=== PATIENT | female | born 1935 | race African-American/Black ===

== ENCOUNTER 2018-10-06 07:55 | Day surgery (SDC) | payer OTHER ==
[2018-10-05 14:50] VITALS: BMI 39.1
[2018-10-06] MEDS ORDERED: ceFAZolin SODIUM 1 GM VIAL ONE (11:04)
[2018-10-06] MEDS ORDERED: KETOROLAC TROMETHAMINE 30 MG/1 ML VIAL ONE (11:04)
[2018-10-06] MEDS ORDERED: DEXAMETHASONE SOD PHOSPHATE 4 MG/1 ML VIAL ONE (11:04)
[2018-10-06] MEDS ORDERED: LIDOCAINE HCL/PF 2% SDV 5ML VIAL ONE ×2 (11:04→11:05)
[2018-10-06] MEDS ORDERED: SODIUM CHLORIDE 0.9% P/F 10 ML VIAL IJ ONE (11:04)
[2018-10-06] MEDS ORDERED: PROPOFOL 20 ML ONE ×2 (11:06→13:40)
[2018-10-06] MEDS ORDERED: SUCCINYLCHOLINE CHLORIDE 200 MG/10 ML VIAL ONE (11:06)
[2018-10-06] MEDS ORDERED: DESFLURANE GAS 240 ML BOTTLE IH ONE (11:15)
[2018-10-06] MEDS ORDERED: ISOSULFAN BLUE 10 MG/ML VIAL SQ ONE (11:22)
[2018-10-06] MEDS ORDERED: ceFAZolin SODIUM 1 GM VIAL IVPB ONE (12:10)
[2018-10-06] MEDS ORDERED: ONDANSETRON 4 MG/2 ML VIAL IVPB PRN (14:18)
[2018-10-06] MEDS ORDERED: ACETAMINOPHEN 500 MG TABLET (FP) PO PRN (14:19)
[2018-10-06] MEDS ORDERED: LACTATED RINGERS SOLUTION 1,000 ML/1,000 ML INFUS.BAG IV SCH (14:30)
[2018-10-06] MEDS ORDERED: ACETAMINOPHEN 325 MG TABLET (FP) PO PRN (14:32)
[2018-10-06] MEDS ORDERED: oxyCODONE HCL 5 MG TABLET PO PRN (14:32)
--- NOTE | 2018-10-06 14:44 | OP ---
Operative Note - Note: Operative Date: 10/06/18 Pre-Operative Diagnosis: Left Breast Cancer Operation: Left breast lumpectomy with wire localied excision, Left sentinile node biopsy Post-Operative Diagnosis: Same as Pre-op Surgeon: Sapphire Boone Electrical Appliance Servicer: Mere Sumner Anesthesiologist/STAMP CLERK: Samir Ty Anesthesia: General Estimated Blood Loss (mls): 20 Fluid Volume Replaced (mls): 400 Operative Report Dictated: Yes
--- NOTE | 2018-10-06 14:45 | SURG ---
Surgery Design Quality Engineer Note Design Quality Engineer: Mere Sumner PA-C Date of Service: 10/06/18 Diagnosis: left breast Cancer Procedure: Left breast lumpectomy with wire localized excision, Left sentinile node biopsy I was present for the entirety of the operative procedure. For further detail, please refer to operative report. Visit type - Case Type Case Type: Scheduled - Emergency Emergency Visit: No - New patient This patient is new to me today: Yes Date on this admission: 10/06/18
[2018-10-06] MEDS ORDERED: ACETAMINOPHEN INJECTION 100 ML IVPB ONE (15:13)
[2018-10-06] MEDS ORDERED: ACETAMINOPHEN 1000 MG/100 ML VIAL (NON FORMULARY) IVPB ONE (15:15)
--- NOTE | 2018-10-07 08:39 | OP ---
DATE OF OPERATION: 10/06/2018 PREOPERATIVE DIAGNOSIS: Left breast cancer, left breast microcalcifications. POSTOPERATIVE DIAGNOSIS: Left breast cancer, left breast microcalcifications. PROCEDURE: Left breast wide localized lumpectomy and sentinel node biopsy, left breast wide localized excisional biopsy. SURGEON: Sapphire Logan MD PIPELINE SUPERINTENDENT: Mere. ANESTHESIA: General. ESTIMATED BLOOD LOSS: Minimal. COMPLICATIONS: None. This was a sterile procedure. INDICATION FOR PROCEDURE: Patient presented with a palpable mass in the upper lower back. A needle biopsy showed this to be invasive carcinoma. She had a mammogram that noted the mass with the calcifications as well as a second area of calculations close to the nipple and the upper left breast. My recommendation was an excision of the calculations for definitive diagnosis that were close to the nipple as well as a lumpectomy with sentinel node biopsy. The procedure was discussed with all of the questions answered. PROCEDURE IN DETAIL: The patient was brought to [facility] in [place] and taken to breast imaging where a wire was used to localize the mass in the left 12 o'clock location 10 cm from the nipple as well as the calcifications closer to the nipple in the upper left breast. She was then taken to nuclear medicine where I injected technetium laced with sulfur colloid as an intradermal injection in the left 12 o'clock periareolar location. She was then brought up to the operating room. After induction of general anesthesia and IV antibiotics, 5 mL of Isosulfan blue dye was injected into the left subareolar plexus, and the breast was massaged for 5 minutes. The left breast and axilla were then prepped and draped in the usual sterile fashion. A 4-cm incision was made in the left axilla, carried down to the clavicpectoral fascia to identify 3 sentinel lymph nodes, 1 that was blue and hot, the other was hot but not blue, and a 3rd one that was significantly very deep in also hot not blue. There were other lymph nodes that I initially thought were hot turned out not to be ex vivo, therefore, were sent as left axillary nonsentinel nodes. There was no other blue dye radioactivity or pathologic feeling lymph nodes in the left axilla; therefore, once hemostasis was assured, first a left breast lumpectomy was performed. An incision was made just inferior to the insertion of the wire in the left 12 o'clock location 10 cm from the nipple, and the wire was used as a guide to get down to the area. This was excised en bloc and tagged with a long stitch lateral, short stitch superior. Sent for specimen radiograph. While waiting for that, the left breast excisional biopsy was performed. An incision was made in the periareolar 12 o'clock left breast, and a wire was used to as a guide to get down to the area. This was excised en bloc and sent as a left breast excisional biopsy. The specimen radiograph showed the mass and the calcifications with a rim of normal fatty tissue around the lumpectomy as well as the calcifications being in the center of the specimen on the excisional biopsy. Once hemostasis was assured, both incisions were closed in a routine fashion with interrupted 2-0 Vicryl. Skin approximated with 3-0 Vicryl and running 4-0 Prolene. The axillary incision was also closed with interrupted 0 Vicryl and running 4-0 Prolene. A sterile dressing with Tegaderm and 4x4 was applied. She tolerated the procedure well, was extubated on the operating room table, and taken to recovery in good condition. SAPPHIRE LOGAN M.D. [id number]
[2018-10-07 12:11] VITALS: BP 131/72; PULSE 94; TEMP 98.5
--- NOTE | 2018-10-11 13:25 | PATH ---
Surgical Pathology Report Patient Name: JARVIS JIMENEZ [facility]. Rec. #: [id number] /Age/Gender: 1935 (Age: 82) / F Account: [id number] Location: AMBULATORY SURG Taken: 10/06/2018 Received: 10/06/2018 Reported: 10/11/2018 Physicians: Sapphire Boone M.D. Specimen(s) Received A: LEFT BREAST LUMPECTOMY SHORT STITCH SUPERIOR LONG STITCH LATERAL B: LEFT BREAST EXCISIONAL BIOPSY C: LEFT AXILLARY SENTINEL LYMPH NODE #1 D: LEFT AXILLARY SENTINEL LYMPH NODE #2 E: LEFT AXILLARY SENTINEL LYMPH NODE #3 F: LEFT AXILLARY NON-SENTINEL LYMPH NODE Clinical History Left breast cancer Final Diagnosis A. LEFT BREAST, LUMPECTOMY: INVASIVE DUCTAL CARCINOMA, POORLY DIFFERENTIATED (TUBULE SCORE 3/3, NUCLEAR GRADE: 2/3, MITOTIC SCORE: 3/3, TOTAL SCORE 8/9, JANAE GRADE 3), MEASURING 2.6 CM IN GREATEST DIMENSION, GROSSLY AND MICROSCOPICALLY. DUCTAL CARCINOMA IN SITU (DCIS) PRESENT, INTERMEDIATE TO HIGH NUCLEAR GRADE, CRIBRIFORM AND MICROPAPILLARY PATTERNS, WITH ASSOCIATED NECROSIS AND MICROCALCIFICATIONS. SURGICAL MARGINS ARE UNINVOLVED BY CARCINOMA. INVASIVE CARCINOMA IS AT 2MM FROM THE CLOSEST (LATERAL) MARGIN. DCIS IS AT 10 MM FROM THE CLOSEST (ANTERIOR) MARGIN. NO LYMPHOVASCULAR INVASION IS IDENTIFIED. 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 PATHOLOGIC STAGE (PTNM): PT2, PN0 SEE ALSO INVASIVE CARCINOMA CASE SUMMARY BELOW. B. LEFT BREAST, EXCISIONAL BIOPSY: DUCTAL CARCINOMA IN SITU (DCIS) PRESENT, HIGH NUCLEAR GRADE, CRIBRIFORM PATTERN, WITH ASSOCIATED NECROSIS AND MICROCALCIFICATIONS. SURGICAL MARGINS IS UNINVOLVED BY DCIS. DCIS IS AT 9MM FROM THE CLOSEST MARGIN. THE REST OF THE BREAST TISSUE SHOWS INTRADUCTAL PAPILLOMA, FIBROADENOMA, AND PROLIFERATIVE FIBROCYSTIC CHANGES. C. LEFT AXILLARY SENTINEL LYMPH NODE #1, BLUE AND HOT, EXCISION: TWO LYMPH NODES, NEGATIVE FOR METASTATIC CARCINOMA (0/2). D. LEFT AXILLARY SENTINEL LYMPH NODE #2, HOT NOT BLUE, EXCISION: THREE LYMPH NODES, NEGATIVE FOR METASTATIC CARCINOMA (0/3). E. LEFT AXILLARY SENTINEL LYMPH NODE #3, HOT NOT BLUE, EXCISION: ONE LYMPH NODE, NEGATIVE FOR METASTATIC CARCINOMA (0/1). F. LEFT AXILLARY NON-SENTINEL LYMPH NODE, EXCISION: FOUR LYMPH NODES, NEGATIVE FOR METASTATIC CARCINOMA (0/4). Comments Breast Invasive Carcinoma: Surgical Pathology Case Summary (Based on AJCC TNM 8 th edition) Procedure _x_ Excision (less than total mastectomy) Specimen Laterality _x_ Left Tumor Size Greatest dimension of largest invasive focus >1 mm (specify exact measurement) (millimeters): 26 mm Histologic Type _x_ Invasive carcinoma of no special type (ductal, not otherwise specified) Histologic Grade (Janae Histologic Score) Glandular (Acinar)/Tubular Differentiation _x_ Score 3 (<10% of tumor area forming glandular/tubular structures) Nuclear Pleomorphism _x_ Score 2 Mitotic Rate _x_ Score 3 Overall Grade _x_ Grade 3 (scores of 8 or 9) Tumor Focality _x_ Single focus of invasive carcinoma Ductal Carcinoma In Situ (DCIS) __x_ DCIS is present in specimen __x_ Positive for EIC Margins Invasive Carcinoma Margins _x_ Uninvolved by invasive carcinoma Distance from closest margin (millimeters): 2 mm Closest margin: lateral DCIS Margins _x_ Uninvolved by DCIS Distance from closest margin (millimeters): 10 mm Closest margin: anterior Regional Lymph Nodes Number of Lymph Nodes with Macrometastases (>2 mm): 0 Number of Lymph Nodes with Micrometastases (>0.2 mm to 2 mm and/or >200 cells): 0 Number of Lymph Nodes with Isolated Tumor Cells (=0.2 mm and =200 cells): 0 Number of Lymph Nodes Examined: 10 Number of [place] Nodes Examined: 6 Treatment Effect _x_ No known presurgical therapy Lymphovascular Invasion _x_ Not identified Pathologic Stage Classification (pTNM, AJCC 8th Edition) TNM Descriptors (required only if applicable)m (multiple foci of invasive carcinoma)r (recurrent)y (posttreatment) Primary Tumor (Invasive Carcinoma) (pT) _x_ pT2: Tumor >20 mm but =50 mm in greatest dimension Regional Lymph Nodes (pN) Category (pN) _x_ pN0: No regional lymph node metastasis identified or ITCs only Biomarker Studies Results of ER and ID studies performed on this specimen (block# A1) at [facility] are as follows: ER (clone [id number] mouse monoclonal antibody by [employer]): 100% nuclear staining with strong and moderate intensity (Positive). ID (clone16 mouse monoclonal antibody by [employer]): 80% nuclear staining with strong and moderate intensity (Positive). Results of Her2 (IHC) & Ki-67 studies performed on this specimen (block# A1) at [place], [place] ([id number]) are as follows: Her2 IHC (EP3 from [employer], formerly known as [id number], using [employer] Polymer Refine detection kit): 2+ (equivocal) Ki67: ~25% (intermediate proliferative index) Result of Her2 (FISH) will be reported separately in an addendum. Positive and negative controls (internal if applicable) show appropriate results. Formalin fixation and is within current ASCO/CAP recommendations for ER, ID and Her2 testing. Time to formalin fixation is not given Electronically Signed Joelle Coreas M.D. Addendum Reported: 10/13/2018 Addendum Diagnosis Her2 Analysis by FISH performed and interpreted at [facility] shows the following: INTERPRETATION: Negative Probe: Her2 3.7 Probe: CEP17 2.7 Ratio: 1.4 Approved scoring guideline >= 2.0 = Amplified <= 2.0 = Not amplified See [facility] report ([id number]) for additional details. Joelle Croeas M.D. Gross Description A. Received fresh on an AccuGrid, labeled "left breast lumpectomy," is a 9.0 x 7.0 x 3.8 cm. huitron-yellow, irregular, portion of fibroadipose tissue with a needle localization wire present. There is a short suture marking the superior aspect and a long suture marking the lateral aspect, per the surgeon. There is no skin or nipple present. The specimen is inked as follows: superior and lateral blue; inferior green; medial yellow; anterior red; deep black. The specimen is serially sectioned from superior to inferior. Sectioning reveals a 2.6 x 2.1 x 2.1 cm huitron, indurated mass focally at 0.2 cm from the lateral margin. The mass is 0.5 cm from the anterior margin and 0.6 cm from the medial margin. The remaining margins appear clear of the mass. Industrial Equipment Mechanic sections are submitted in 10 cassettes as follows: 1-2-one full face bisected section of mass; 3-mass with lateral margin; 4-5-mass with medial margin; 6-7-mass with anterior margin; 8-deep margin; 9-superior margin; 10-inferior margin. B. Received fresh on an AccuGrid labeled "left breast excisional biopsy," is a 9.0 x 6.5 x 3.1 cm unoriented portion of fibroadipose tissue with a needle localization wire present. There is no skin or nipple present. The specimen is inked blue and serially sectioned. Sectioning reveals a 0.5 x 0.4 x 0.4 cm focus of firm fibrous tissue at 0.5 cm from the closest radial margin. The firm focus is surrounded by additional dense white fibrous tissue. There is an additional 1.8 x 1.5 x 1.4 cm ill-defined focus of fibrous tissue abutting the radial margin. Industrial Equipment Mechanic sections are submitted in 9 cassettes as follows: 1-2-firm focus of fibrous tissue; 8-8-vtfcgyuc ill-defined focus of fibrous tissue. Total formalin fixation time: Approximately 28 hours C. Received in formalin labeled "left axillary sentinel lymph node #1," are 2 lymph nodes with attached fat measuring 0.7 and 1.5 cm in greatest dimension. The lymph nodes are entirely submitted in 2 cassettes as follows: 1-2-one bisected lymph node each. D. Received in formalin labeled "left axillary sentinel lymph node #2," are 3 huitron lymph nodes with attached fat ranging from 0.4-0.6 cm in greatest dimension. The lymph nodes are submitted in toto in one cassette. E. Received in formalin labeled "left axillary sentinel lymph node #3," is a 0.7 cm in greatest dimension lymph node with attached fat. The specimen is submitted in toto in one cassette. F. Received in formalin labeled "left axillary non-sentinel node," a 6.0 x 4.5 x 0.9 cm aggregate of yellow, lobulated adipose tissue. Sectioning reveals 4 lymph nodes ranging from 0.3-1.1 cm in greatest dimension. The lymph nodes are entirely submitted in 4 cassettes as follows: 1-one whole lymph node; 2-4-one bisected lymph node each. 10/06/201810/06/2018
== END 2018-10-07 13:47 | disposition home or self-care (01) ==
LOC: JASUSAT 07:55 → EDSTATUS 09:30 → J6S 16:45 → JASUSAT 10-07 13:46
PROVIDERS: ATTEND Surgery
PROC: 0HBU0ZZ Excision of Left Breast, Open Approach (ICD-10-PCS; principal; 2018-10-06 11:00)
PROC: 0HBU0ZX Excision of Left Breast, Open Approach, Diagnostic (ICD-10-PCS; 2018-10-06 11:00)
DX: C50.912 Malignant neoplasm of unspecified site of left female breast (principal)
CPT/HCPCS: 19281; 19282; 78195-TC; 88307-TC; 94760; A9541; J0131